=== PATIENT | male | born 1950 | race Caucasian/White ===

== ENCOUNTER 2025-01-11 06:43 | Outpatient (REF) | payer OTHER, SELFPAY ==
[2025-01-11 07:04] LABS: MANUAL DIFF FLAG NO
[2025-01-11 07:18] LABS: Basophils Absolute Auto 0.1 X10*3/uL (0.0-0.2); Basophils Percent Auto 0.6 % (0-2); Eosinophils Absolute Auto 0.8 X10*3/uL (0.0-0.4); Eosinophils Percent Auto 9.2 % (0-4); Hematocrit 34.2 % (42.0-52.0); Hemoglobin 11.3 g/dl (14.0-18.0); Imm Gran Abs Auto 0.04 X10*3/uL (0.00-0.03); Imm Gran Pct Auto 0.5 % (0.0-0.4); Lymphocytes Absolute Auto 1.8 X10*3/uL (1.2-4.9); Lymphocytes Percent Auto 20.7 % (20-40); Mean Corpuscular Volume 87.7 fL (80.0-98.0); Mean Platelet Volume 10.6 fL (9.4-12.4); Monocytes Absolute Auto 0.8 X10*3/uL (0.1-1.2); Monocytes Percent Auto 9.5 % (2-11); Neutrophils Absolute Auto 5.3 x10*3/uL (2.0-8.3); Neutrophils Percent Auto 59.5 % (45-73); Platelet Count 304 X10*3/uL (160-400); White Blood Count 8.9 X10*3/uL (4.8-10.8)
[2025-01-11 07:46] LABS: Alanine Aminotransferase 14 U/L (0-40); Albumin Level 3.4 g/dL (3.5-5.0); Alkaline Phosphatase 78 U/L (39-117); Anion Gap 10 (12-20); Aspartate Amino Transferase 20 U/L (5-37); Bilirubin Total 0.3 mg/dL (0.0-1.0); Blood Urea Nitrogen 18 mg/dL (9-16); Calcium 9.1 mg/dL (8.4-10.2); Carbon Dioxide 30 mmol/L (22-29); Chloride 105 mmol/L (96-108); Cholesterol 175 mg/dL (<200); Estimated Glomerular Filt Rate > 60; Glucose Fasting 86 mg/dL (60-99); HDL Cholesterol 41 mg/dL (>40); Iron 43 mcg/dL (45-160); LDL Cholesterol Calculated 119 mg/dL (<100); Percent Iron Saturation 22 % (15-50); Potassium 4.1 mmol/L (3.3-5.1); Sodium 141 mmol/L (135-145); Total Iron Binding Capacity 194 mcg/dL (228-428); Total Protein 6.5 g/dL (6.5-8.0); Triglycerides 78 mg/dL (<150); Unsaturated Iron Binding 151 ug/dL
[2025-01-11 08:02] LABS: Ferritin 226 ng/mL (20-250); Thyroid Stimulating Hormone 4.53 uIU/mL (0.32-4.0)
[2025-01-11 08:21] LABS: Folate 12.6 ng/mL (> or = 4.0)
[2025-01-11 08:24] LABS: Prostate Specific Antigen 1.53 ng/mL (<0.05-4.0); Vitamin B12 307 pg/mL (200-900)
[2025-01-14 09:12] LABS: TS Negative Control Passed; TS Panel A 4; TS Panel B 2; TS Positive Control Passed; TSpotTB Negative (Negative)
[2025-01-19 13:44] LABS: VITAMIN D (1,25 OH) D3 29 pg/mL; Vit D (1,25-Dihydroxy) Total 29 pg/mL (18-72); Vitamin D (1,25 OH) D2 <8 pg/mL
== END 2025-01-11 06:44 | disposition home or self-care (01) ==
LOC: HO.HSH2W 06:43
PROVIDERS: Visit Provider Internal Medicine
DX: Z13.89 Encounter for screening for other disorder (principal)
CPT/HCPCS: 36415; 80053; 80061; 82607; 82652; 82728; 82746; 83540; 84153; 84443; 85025; 86481

== ENCOUNTER 2025-02-07 11:53 | Outpatient (AMB) | payer OTHER, SELFPAY ==
--- OUTSIDE RECORDS SUMMARY | 2019-05-11 09:15 | XMS_ITS | Continuity of Care Document ---
Author Organization [facility] Address [address] [place] [address] [place] [phone] Phone Care Team Providers Care Welding Manager Name Role Phone Kike Cortés MD Unavailable [...] on Encounter [facility] , [address] [place], [place] [address], [place], [place], [id number], [place] tel:[phone] [place] s/p PCIOL OS (chief complaint) Cataract extraction status, right eye Oct-0 3 9 Opalkaren Stokes. [address] [place] [address], [id number], . tel:[phone] [facility] [address], [id number], [place] tel:[phone] [place] No Information Oct-0 2 9 Milana Stokes. [address] [place] [address], [id number], [place]. tel:[phone] Referring Provider: Kike Gusman, [address] [place] [address], [id number] . tel:[phone] [facility] [address], [id number], [place] tel:[phone] [place] Post OP (chief complaint) Cataract extraction status, left eye Sep-1 9 Milana Stokes. [address] [place] [address], [id number], [place]. tel:[phone] [facility] [address], [id number], [place] tel:[phone] [place] No Information Sep-1 9 Milana Stokes. [address] [place] [address], [id number], [place]. tel:[phone] Referring Provider: Kike Gusman, [address] [place] [address], [id number] . tel:[phone] [facility] [address], [id number], [place] tel:[phone] [place] [address] No Information Sep-0 9 Milana Stokes. [address] [place] [address], [id number], [place]. tel:[phone] [facility] [place], [address], [id number], tel:[phone] [place] Cataract OU (chief complaint) Combined form of senile cataract of both eyesPresbyopia 9 Milana Stokes. [address] [place] [address], [address], [id number], [place]. tel:[phone] [facility] , [address] [place] [address], [place], [place], [id number], tel:[phone] [place] 128 No Information 9 Mialna Stokes. [address] [facility], [place] [address], [place], [place], [id number], [place]. tel:[phone] Family History Family Member Type Diagnosis Age At Onset Problem (finding) Family history of diabetes mellitus type 2 Payers Payer name Insurance type Covered alliance party ID Authoriza tion(s) No Information Social History [...]
--- NOTE | 2025-02-07 11:53 | MHC.OFFVIS ---
Intake Visit Reasons: VT follow up- New PT Intake Note: Patient is present for VT F/U Urology Medication:NONE Antibiotic Allergy:NONE Blood Thinner:NONE Post Hole Digger Required: No Allergies No Known Allergies Allergy (Verified 02/07/25 11:54) Coding
--- OUTSIDE RECORDS SUMMARY | 2025-02-07 12:37 | XMS_ITS | Clinical Summary ---
Author Organization [employer] Address [address] [facility] [address] [place] [address] Care Team Providers Care Motocross Racer Name Role Phone Unavailable Primary Care Provider Unavailabl e Social History Tobacco Use Types Packs/Day Years Used Date Smoking Tobacco: Never Assessed Sex and Gender Information Value Date Recorded Sex Assigned at Male 01/23/2025 9:18 AM EDT Legal Sex Male 9:16 AM EDT Gender Identity Male 01/23/2025 9:18 AM EDT Sexual Orientation Straight 01/23/2025 9: 18 AM EDT Plan of Treatment Upcoming Encounters Date Type Department Care Team (Late st Contact Info) Description 03/21/2025 1:45 PM EDT Office Visit [facility] [address] [place] [address] Tyler Hahn, DMD [address] [facility] [place] [address] Health Maintenance Due Date Last Done Comments CT Colonography 1950 Colonoscopy 1950 Colorectal Cancer Screening 1950 Depression Screening 1950 FIT DNA/Cologuard 1950 FIT 1950 FOBT 1950 Lipid Panel 1950 SDOH Screening 1950 Sigmoidoscopy 1950 Alcohol/Substance Use Screening 1962 Tobacco Screening 1962 Hepatitis C Screening 1968 DTaP/Tdap/Td Vaccines (1 - Tdap) 1969 Pneumococcal Vaccine: 50+ Ye ars (1 of 1 - PCV) 2000 Zoster Vaccines (1 of 2) 2000 COVID-19 Vaccine ( - 2023-2 5 season) 2024 Influenza Vaccine (Season Ended) 2025 RSV Patients and Pa tients Aged 60 years or older (1 - 1-dose 75+ series) 2025 HIB Vaccines Aged Out No longer eligi ble based on patient's age to complete this topic HPV Vaccines Aged Out No longer eligi ble based on patient's age to complete this topic Hepatitis A Vaccines Aged Out No long er eligible based on patient's age to complete this topic Hepatitis B Vaccines Aged Out No long er eligible based on patient's age to complete this topic IPV Vaccines Aged Out No longer eligi ble based on patient's age to complete this topic Meningococcal B Vaccine Aged Out No l onger eligible based on patient's age to complete this topic Meningococcal Vaccine Aged Out No suresh debora eligible based on patient's age to complete this topic RSV under 20 months Aged Out No longe r eligible based on patient's age to complete this topic Rotavirus Vaccines Aged Out No longer eligible based on patient's age to complete this topic
--- NOTE | 2025-02-07 15:50 | HO.VETSHOME ---
Intake Intake Visit Reasons: VT follow up- New PT Allergies No Known Allergies Allergy (Verified 02/07/25 11:54) HPI HPI Comments History of Present Illness Details Kash is a pleasant male. [facility]ident [facility]. He is seen for the following urologic conditions - neurogenic bladder - low risk prostate cancer Hospitalized in [place] with urosepsis secondary to E coli and hematuria. Cystoscopy performed with clot retention removal 07/02 Has failed voiding trial multiple occasions Optimized on finasteride and tamsulosin Recommendation for voiding trial If voiding trial fails recommend suprapubic tube placement Review of Systems Const Denies chills and Denies fever(s) Card Reports no additional complaints and Denies syncope Resp Denies cough GI Denies abdominal pain and Denies heartburn Reports as per HPI and Denies change in libido Neuro Denies syncope Psych Denies change in libido Endo Denies change in libido Physical Exam Const General: cooperative, healthy appearing, comfortable and no acute distress Orientation/consciousness: patient oriented x3 HEENT Face and sinus: Yes normal facial exam Mouth: moist mucous membranes Neck Neck: Yes normal visual inspection, Yes full ROM and Yes trachea midline Chest Chest palpation & inspection: normal inspection of the chest Resp Effort & Inspection: normal respiratory effort, able to speak in complete sentences and no respiratory distress GI Inspection: Yes normal to inspection Back/Spine/Pelvis Cervical Spine: normal cervical lordosis Thoracic/Lumbar Spine: thoracic and lumbar spine normal to inspection Skin General skin exam: no rashes or lesions noted Neuro General: patient oriented x3, gait normal, tone normal and moves all extremities Extrem General: Yes normal to inspection and Yes capillary refill normal Assessment & Plan Assessment & Plan (1) Neurogenic urinary bladder disorder: Code(s): N31.9 - Neuromuscular dysfunction of bladder, unspecified (2) Hormone sensitive prostate cancer: Code(s): C61 - Malignant neoplasm of prostate; Z19.1 - Hormone sensitive malignancy status Plan Voiding trial Patient Instructions: This note is constructed using voice recognition software. While every effort has been made to ensure accuracy mechanical meter tester errors may have been included. Imaging studies, laboratory and physical exam results were discussed and reviewed in detail. No major barriers to patient understanding were identified. An opportunity to ask questions regarding the treatment plan was provided. All questions were answered. The patient expressed understanding and agreement with the above treatment plan. The patient is aware they should contact our office by phone for worsening of their current condition or the appearance of new urologic symptoms. Compliance is encouraged with any medications and followup testing that is ordered. It is a privilege to participate in the urologic care of your patient. If you have any questions or concerns regarding treatment for the above conditions, or other urologic issues, please do not hesitate to contact me. The office telephone contact is [phone]. Sincerely, Dr Ranjeet Peralta MD, [facility] - Urology Compassionate Specialist Care for the Genitourinary System Coding Level of Care Code 28287-Ugxu Fac initial, mod Diagnoses Neurogenic urinary bladder disorder N31.9 Hormone sensitive prostate cancer C61; Z19.1
== END 2025-02-07 16:22 | disposition home or self-care (01) ==
LOC: HO.HUSV 11:53
PROVIDERS: Visit Provider Urology
DX: N31.9 Neuromuscular dysfunction of bladder, unspecified (principal); C61 Malignant neoplasm of prostate; Z19.1 Hormone sensitive malignancy status
CPT/HCPCS: 99305

== ENCOUNTER 2025-02-09 15:12 | Emergency (ER) | payer MEDICARE, SELFPAY ==
--- NOTE | ~2025-02-09 | CT_ITS ---
CLINICAL HISTORY: fall CT chest without contrast Comparison: None provided Findings: The heart is normal size. The visualized thyroid and mediastinum are unremarkable. Gynecomastia. Calcified granuloma in the right upper lobe. Scattered tiny bilateral pulmonary nodules measuring no more than 5 mm. Per Fleischner criteria: Low-risk patients: No routine follow-up required. High-risk patients: Optional CT at 12 months. Left apical pleural thickening. No significant pleural effusion or pneumothorax. Please see same day CT abdomen pelvis report. Subtle nondisplaced fracture along the right glenoid best appreciated on series 25, image 28. Exaggeration of the thoracic kyphosis. Osteopenia with diffuse multilevel spondylosis. Multilevel Schmorl's nodes with likely small scattered bone islands. Chronic appearing multilevel compression deformities without evident acute fracture lines. Intramuscular lipoma along the right posterior inferior shoulder. IMPRESSION: No acute intrathoracic pathology. Right glenoid fracture. This document has been electronically signed by: Lorenzo Sorto MD on 02/09/2025 18:15:50
--- NOTE | ~2025-02-09 | CT_ITS ---
CLINICAL HISTORY: Fall CT cervical spine without contrast Comparison: None provided Findings: Motion and streak artifact limit evaluation. Exaggeration of the cervical lordosis. Osteopenia of the Multilevel spondylosis with osteophytosis, uncovertebral hypertrophy, facet arthropathy and degenerative disc disease. Diffuse spinal canal narrowing, for example [id number] at C5-C6 with severe bilateral foraminal stenoses. No acute fractures or dislocations. No cervical fluid collections or masses. Lung apices are clear. IMPRESSION: No acute findings. Additional findings as described. This document has been electronically signed by: Lorenzo Sorto MD on 02/09/2025 18:22:38
--- NOTE | ~2025-02-09 | CT_ITS ---
CLINICAL HISTORY: Fall CT head without contrast Comparison: None provided Findings: Scattered subcortical and periventricular hypoattenuation, likely in keeping with chronic small vessel ischemic disease. Parenchymal volume loss with compensatory prominence of the ventricles and CSF spaces. No acute territorial infarction, intracranial hemorrhage, midline shift or hydrocephalus. Bilateral encephalomalacia/gliosis, left more than right frontal lobes. Opacified paranasal sinuses, right more than left with scattered air-fluid levels may reflect acute sinusitis. The orbits are within normal limits. Minimal soft tissue edema along the left forehead. There is no acute fracture. Bilateral lens extraction. IMPRESSION: 1. No acute intracranial hemorrhage or territorial infarction. 2. Additional findings as described. This document has been electronically signed by: Lorenzo Sorto MD on 02/09/2025 18:19:27
--- NOTE | ~2025-02-09 | CT_ITS ---
CLINICAL HISTORY: fall CT abdomen and pelvis without contrast Comparison: None provided Findings: Small hiatal hernia. Esophageal decompression with mild mural thickening, nonspecific. Please see same day CT chest report. Gynecomastia. Bilateral perinephric stranding, nonspecific. No urolithiasis or hydronephrosis. No bowel obstruction, pneumoperitoneum, or pneumatosis. Mildly prominent inguinal nodes, may be reactive. Circumferential bladder wall thickening with stranding concerning for cystitis. Large rectal stool burden with mural thickening and presacral stranding concerning for proctitis. Prostatomegaly noted. Scattered colonic diverticulosis without diverticulitis or colitis. Normal appendix. Osteopenia with diffuse multilevel spondylosis. Multilevel Schmorl's nodes. No acute fracture. [id number] right and mild left bilateral hip osteoarthritis. IMPRESSION: 1. Possible cystitis, should be correlated clinically. 2. Features concerning for proctitis. This document has been electronically signed by: Lorenzo Sorto MD on 02/09/2025 18:21:06
[2025-02-09 15:19] VITALS: BP 148/70; PULSE 81; O2SAT 98
[2025-02-09 15:25] VITALS: BP 145/68; PULSE 77; RESP 17; TEMP 36.4; O2SAT 96; BMI 28.8
--- OUTSIDE RECORDS SUMMARY | 2025-02-09 16:00 | XMS_ITS | Clinical Summary ---
Author Organization [employer] Address [address] [facility] [address] [place] [address] Care Team Providers Care Car Varnisher Name Role Phone Unavailable Primary Care Provider [...] Description 03/21/2025 1:45 PM EDT Office Visit [facility] [address] [place] [address] Tyler Hahn, DMD [address] [facility] [place] [address] Health Maintenance Due Date Last Done Comments [...]
--- NOTE | 2025-02-09 16:26 | ECG_ITS ---
Test Reason : fall untwitnessed Blood Pressure : */* mmHG Vent. Rate : 83 BPM Atrial Rate : 83 BPM P-R Int : 158 ms QRS Dur : 94 ms QT Int : 380 ms P-R-T Axes : 79 -33 74 degrees QTcB Int : 446 ms Normal sinus rhythm Left axis deviation Abnormal ECG No previous ECGs available Referred By: Jose Coy Electronically Signed By: JUNG ALVAREZ MD
--- NOTE | 2025-02-09 16:41 | ED.GENADULT ---
HPI - General Adult General Chief complaint: Fall Stated complaint: unwitnessed fall, L sided pain Time Seen by Provider: 02/09/25 15:16 Source: EMS Mode of arrival: EMS Limitations: other (Dementia) History of Present Illness HPI narrative: 74 yold male with pmh of dementia, GERD, urge incontinenence presents to the ED for unwitnessed fall. Patient usually has to be liefted with foyer and move around the floor in a foyer. Patient was found on the ground away from his room. Related Data Home Medications ?Medication ?Instructions ?Recorded ?Confirmed No Known Home Meds 02/07/25 Allergies Allergy/AdvReac Type Severity Reaction Status Date / Time No Known Allergies Allergy Verified 02/09/25 15:28 Review of Systems Review of Systems: unwtinessd fall Yes all other systems are reviewed and are negative [facility] Social History Social History (System 02/08/25 @ 14:15 by Keyanna Talavera) Unable to assess alcohol history related to: Unable to respond Physical Exam ED Vital Signs: Vital Signs - 24 hr 02/09/25 15:25 02/09/25 19:19 Temperature 97.5 F 98.0 F Pulse Rate 77 80 Respiratory Rate 17 16 Blood Pressure 145/68 H 143/77 H Pulse Oximetry 96 94 Oxygen Delivery Method Room Air Room Air BMI result Body Mass Index 28.8 Const General: cooperative, healthy appearing, comfortable, no acute distress, well developed, alert, awake and Physically active [facility] Head: Yes normal to inspection, Yes No palpable skull fracture present, Yes normocephalic and Yes atraumatic Eyes General: appearance normal, both eyes and all related structures Neck Neck: Yes normal visual inspection, Yes full ROM, Yes no lymphadenopathy, Yes no meningeal signs, Yes trachea midline, Yes supple, No anterior neck swelling and No tender Chest Chest palpation & inspection: normal inspection of the chest and normal palpation of entire chest wall Resp Effort & Inspection: normal respiratory effort and able to speak in complete sentences Auscultation: clear to auscultation bilaterally Cardio Jugular venous distension: no JVD Heart sounds: S1 normal heart sound present and S2 normal heart sound present GI Inspection: Yes normal to inspection Palpation (GI): Soft to palpation, not firm, nontender, no guarding and not rigid General: Yes no CVA tenderness Back/Spine/Pelvis Back: no CVA tenderness and No back tenderness Skin General skin exam: no rashes or lesions noted, elasticity normal and turgor normal Neuro Other: A0x1 which is baselind General: moves all extremities, Normal light touch and pain sensation, no meningeal signs, no focal motor deficits, CN's II-XI intact bilaterally and normal sensation to monofilament Extrem General: Yes normal to inspection, Yes full ROM and Yes capillary refill normal Psych Appearance: grossly normal, well kempt and not disheveled Course Course Course Narrative: 11:00 PM 02/09/2025 (Mk JAMIL): Patient was signed out to this provider at shift change, in summary the patient is a 74-year-old male presenting to the ED for evaluation of an unwitnessed fall. Patient was found to have a right glenoid fracture, placed in a splint, however was signed out pending repeat troponin and urinalysis. The patient's repeat troponin is negative, patient's urinalysis shows leukocyte esterase and WBCs, no nitrites or bacteria, patient reportedly is not experiencing any urinary symptoms. UA findings do not likely demonstrate true infection. Patient will be discharged. Medical Decision Making Medical Decision Making [facility] Narrative: 74-year-old male presents to ED for witnessed fall at residential. Patient will have medical workup. 7:13: Hives she EKG are reassuring. CT scan shows right glenoid fracture. Patient is placed in sling. Pending UA and troponin. Signed out to OMERO Polk Differential Diagnosis Differential Diagnoses: The differential diagnosis associated with the presentation includes (Brain bleed or fracture) Admission/Observation Consideration of admission/observation: Escalation of care including admission/observation considered Lab Data [facility] Lab Attestation statement: I reviewed the patient's lab results. 02/09/25 17:28 02/09/25 17:28 Labs: Lab Results 02/09/25 02/09/25 02/09/25 Range/Units 17:28 19:10 20:47 WBC 10.3 (4.8-10.8) X10*3/uL RBC 4.44 L (4.60-5.80) X10*6/uL Hgb 13.0 L (14.0-18.0) g/dl Hct 38.8 L (42.0-52.0) % MCV 87.4 (80.0-98.0) fL MCH 29.3 (27.0-33.0) pg MCHC 33.5 (31.0-36.0) g/dl RDW 13.3 (11.0-16.0) % Plt Count 317 (160-400) X10*3/uL MPV 9.6 (9.4-12.4) fL Immature Gran % (Auto) 0.2 (0.0-0.4) % Neut % (Auto) 66.8 (45-73) % Lymph % (Auto) 14.9 L (20-40) % Waldo % (Auto) 8.2 (2-11) % Eos % (Auto) 9.3 H (0-4) % Baso % (Auto) 0.6 (0-2) % Lymph # (Auto) 1.5 (1.2-4.9) X10*3/uL Waldo # (Auto) 0.9 (0.1-1.2) X10*3/uL Eos # (Auto) 1.0 H (0.0-0.4) X10*3/uL Baso # (Auto) 0.1 (0.0-0.2) X10*3/uL Abs Immat Gran (auto) 0.02 (0.00-0.03) X10*3/uL Absolute Neuts (auto) 6.9 (2.0-8.3) x10*3/uL Absolute Nucleated RBC 0.000 (0.0-0.012) X10*3/uL Nucleated RBC % (auto) 0.0 (0.0-0.2) /100WBC Sodium 142 (135-145) mmol/L Potassium 4.3 (3.3-5.1) mmol/L Chloride 106 (96-108) mmol/L Carbon Dioxide 27 (22-29) mmol/L Anion Gap 13 (12-20) BUN 18 H (9-16) mg/dL Creatinine 0.93 (0.5-1.4) mg/dL Estim Creat Clear Calc 79.1 Estimated GFR > 60 Random Glucose 114 (60-115) mg/dL Calcium 8.8 (8.4-10.2) mg/dL Magnesium 2.1 (1.6-2.6) mg/dL Total Bilirubin 0.2 (0.0-1.0) mg/dL AST 21 (5-37) U/L ALT 17 (0-40) U/L Alkaline Phosphatase 87 (39-117) U/L Troponin I High Sens < 2.7 < 2.7 (<3.5-35.0) ng/L Total Protein 7.2 (6.5-8.0) g/dL Albumin 3.7 (3.5-5.0) g/dL Urine Color Yellow Urine Appearance Clear Urine pH 8.0 (5.0-9.0) Ur Specific [place] 1.010 (1.005-1.025) Urine Protein Negative (Neg-Trace) mg/dL Urine Glucose (UA) Negative (Negative) mg/dL Urine Ketones Negative (Negative) mg/dL Urine Blood Negative (Negative) Urine Nitrite Negative (Negative) Ur Leukocyte Esterase Large (3+) H (Negative) Urine RBC 0-2 (0-2) /HPF Urine WBC >50 H (0-5) /HPF Ur Squamous Epith Cells 0-2 (0-2) /HPF Urine Bacteria None Seen (None Seen) Hyaline Casts 0-2 (0-2) /LPF Independent Interpretation I performed an independent interpretation of an: EKG (Negative STEMI) and CT Scan Radiology Impression Discussion of test interpretation with radiology: I have reviewed the radiologist's reading. Independent Historian Clinical information obtained from an independent historian. History obtained from or confirmed by: Other (Patient) Prescription Management I considered prescription management with: Pain Medication Discharge Plan Discharge Clinical Impression: Glenoid fracture of shoulder Patient Disposition: Home, Self-Care Instructions: Arm Fracture in Adults (ED) Additional Instructions: Recommend follow-up with orthopedic surgery and PCP. Return to the ED immediately for swelling, bluish black discoloration, bloody urine, abdominal pain, flank pain, fever, chills, headache, dizziness, chest pain, shortness of breath, or any other concerning symptoms. Prescriptions: No Action No Known Home Meds Referrals: [facility] Orthopedic Surgeons [Provider Group, Orthopedics] - 2 days Referral Note: Glenoid fracture Clinical Impression: Glenoid fracture of shoulder Interventions: ED Discharge Assessment Last Done: 02/10/25 00:21 Discharge Date/Time: 02/10/25 00:22 Print Language: Yakut
[2025-02-09 17:34] LABS: MANUAL DIFF FLAG NO
[2025-02-09 17:35] LABS: Hematocrit 38.8 % (42.0-52.0); Hemoglobin 13.0 g/dl (14.0-18.0); Imm Gran Abs Auto 0.02 X10*3/uL (0.00-0.03); Imm Gran Pct Auto 0.2 % (0.0-0.4); Lymphocytes Absolute Auto 1.5 X10*3/uL (1.2-4.9); Mean Corpuscular HGB Conc 33.5 g/dl (31.0-36.0); Mean Corpuscular Hemoglobin 29.3 pg (27.0-33.0); Mean Corpuscular Volume 87.4 fL (80.0-98.0); NRBC Abs Auto 0.000 X10*3/uL (0.0-0.012); NRBC Pct Auto 0.0 /100WBC (0.0-0.2); Platelet Count 317 X10*3/uL (160-400); Red Blood Count 4.44 X10*6/uL (4.60-5.80); White Blood Count 10.3 X10*3/uL (4.8-10.8)
[2025-02-09 17:49] LABS: Alanine Aminotransferase 17 U/L (0-40); Albumin Level 3.7 g/dL (3.5-5.0); Alkaline Phosphatase 87 U/L (39-117); Anion Gap 13 (12-20); Aspartate Amino Transferase 21 U/L (5-37); Blood Urea Nitrogen 18 mg/dL (9-16); Calcium 8.8 mg/dL (8.4-10.2); Carbon Dioxide 27 mmol/L (22-29); Chloride 106 mmol/L (96-108); Creatinine Clr Calc Pharmacy 79.1; Estimated Glomerular Filt Rate > 60; Magnesium 2.1 mg/dL (1.6-2.6); Potassium 4.3 mmol/L (3.3-5.1); Sodium 142 mmol/L (135-145); Total Protein 7.2 g/dL (6.5-8.0)
[2025-02-09 18:00] LABS: Troponin-I High Sensitivity < 2.7 ng/L (<3.5-35.0)
[2025-02-09 19:19] VITALS: BP 143/77; PULSE 80; RESP 16; TEMP 36.7; O2SAT 94
[2025-02-09 19:26] LABS: Appearance Urine Clear; Glucose Urine UA Negative (Negative); PH 8.0 (5.0-9.0); Specific Gravity - Urine 1.010 (1.005-1.025); UMIC TRIGGER UACC YES
[2025-02-09 19:32] LABS: UACC Culture Trigger YES
[2025-02-09 21:19] LABS: Troponin-I High Sensitivity < 2.7 ng/L (<3.5-35.0)
[2025-02-09 23:30] VITALS: BP 164/75; PULSE 75; RESP 14; TEMP 37.2; O2SAT 96
[2025-02-10 00:21] VITALS: BP 164/75; PULSE 75; RESP 14; TEMP 37.2; O2SAT 96
--- NOTE | 2025-02-10 00:21 | PC.NURSE ---
Susanne at facility called for report
== END 2025-02-10 00:22 | disposition home or self-care (01) ==
PROVIDERS: Physician Assistant; Emergency Provider Emergency Medicine Emergency Medical Services
DX: S42.92XA Fracture of left shoulder girdle, part unspecified, initial encounter for closed fracture (principal); R51.9 Headache, unspecified; M54.50 Low back pain, unspecified; R94.31 Abnormal electrocardiogram [ECG] [EKG]; R07.89 Other chest pain; R10.2 Pelvic and perineal pain; M54.2 Cervicalgia; X58.XXXA Exposure to other specified factors, initial encounter; W19.XXXA Unspecified fall, initial encounter; Y93.9 Activity, unspecified; Y92.9 Unspecified place or not applicable; Y99.8 Other external cause status; Z79.899 Other long term (current) drug therapy
CPT/HCPCS: 36415; 51701; 70450; 71250; 72125; 74176; 80053; 81001; 83735; 84484; 85025; 87086; 87088; 87186; 93005; 99285

== ENCOUNTER → 2025-02-09 15:37 | Outpatient (BNV) | payer MEDICARE, SELFPAY | PROVIDERS: Emergency Provider Emergency Medicine Emergency Medical Services; Visit Provider Radiology Diagnostic Radiology | DX: M47.896 Other spondylosis, lumbar region (principal); S42.141A Displaced fracture of glenoid cavity of scapula, right shoulder, initial encounter for closed fracture; M48.02 Spinal stenosis, cervical region; R22.0 Localized swelling, mass and lump, head | CPT/HCPCS: 70450; 71250; 72125; 74176 ==

== ENCOUNTER → 2025-02-09 16:26 | Outpatient (BNV) | payer MEDICARE, SELFPAY | PROVIDERS: Emergency Provider Emergency Medicine Emergency Medical Services; Visit Provider Internal Medicine Cardiovascular Disease | DX: R94.31 Abnormal electrocardiogram [ECG] [EKG] (principal); W19.XXXA Unspecified fall, initial encounter | CPT/HCPCS: 93010 ==

== ENCOUNTER 2025-02-21 12:35 | Outpatient (AMB) | payer MEDICARE, SELFPAY ==
--- OUTSIDE RECORDS SUMMARY | 2019-05-11 09:15 | XMS_ITS | Continuity of Care Document ---
Author Organization [facility] Address [address] [place] [address] [place] [id number] Phone Care Team Providers Care Speech/Language Therapist Name Role Phone Kike Cortés MD Unavailable Unavailable Allergies, Adverse Reactions, Alerts Substance Reaction Status Criticality No Known Allergies Active No Inform ation Medications Medication Instructions Dosage Effective Dates (start - stop) Status Comments Ilevro 0.3 % eye drops,suspension Instill 1 drop to the operated eye once a day three days prior to surgery - Active Vigamox 0.5 % eye drops instill 1 drop TO THE OPERATIVE EYE THREE TIMES A DAY THREE DAYS PRIOR TO SURGERY - Active prednisolone acetate 1 % eye drops,suspension instill 1 drop by ophthalmic route 2 times every day into affected eye(s) 1.00 drop - Active one a day mens (unknown strength) Not Available - Active IMITREX (unknown strength) Not Available - Active VIAGRA (unknown strength) Not Available - Active Procedures Procedure Date Post-op Follow-up Visit Remove Cataract Complex Post-op Follow-up Visit Custom Cataract Complex LT Extended Refractive Care Coelho Toric Lens ZCT Refraction Ophthalmic IOL Master Intermediate Revisit New Patient Comprehensive Advance Directives Directive Yes / No Effective Date File Name No Information Encounters Encounter Description Practice Location Reason(s) For Visit Diagnoses Date Provider Providers Copied on Encounter [facility] , [address] [place], [place] [address]Suite [facility], [place], [place], [id number], [place] tel:[phone] [place] s/p PCIOL OS (chief complaint) Cataract extraction status, right eye Oct-0 3 9 Opalkaren Stokes. [address] [place] [address], [id number], . tel:[phone] [facility] [address], [id number], [place] tel:[phone] [place] No Information Oct-0 2 9 Milana Stokes. [address] [place] [address], [id number], [place]. tel:[phone] Referring Provider: Kike Gusman, [address] [place] [address], [id number] . tel:[phone] [facility] [address], [id number], [place] tel:[phone] [place] Post OP (chief complaint) Cataract extraction status, left eye Sep-1 9 Milana Sotkes. [address] [place] [address], [id number], [place]. tel:[phone] [facility] [address], [id number], [place] tel:[phone] [place] No Information Sep-1 9 Milana Stokes. [address] [place] [address], [id number], [place]. tel:[phone] Referring Provider: Kike Gusman, [address] [place] [address], [id number] . tel:[phone] [facility] [address], [id number], [place] tel:[phone] [place] [address] No Information Sep-0 9 Milana Stokes. [address] [place] [address], [id number], [place]. tel:[phone] [facility] [place], [address], [id number], tel:[phone] [place] Cataract OU (chief complaint) Combined form of senile cataract of both eyesPresbyopia 9 Milana Stokes. [address] [place] [address], [address], [id number], [place]. tel:[phone] [facility] , [address] [place] [address], [place], [place], [id number], tel:[phone] [place] 128 No Information 9 Milana Stokes. [address] [facility], [place] [address], [place], [place], [id number], [place]. tel:[phone] Family History Family Member Type Diagnosis Age At Onset Problem (finding) Family history of diabetes mellitus type 2 Payers Payer name Insurance type Covered democrat ID Authoriza tion(s) No Information Social History Type Description Quantity Date Captured Comments Alcohol Use Details Unknown Caffeine Use Details Unknown Tobacco Use Status Current non-smoker Smoking Status Never smoker Non-Smoking Tobacco Use Details : No Details Available : No Details Available Sex Male Chief Complaint And Reason For Visit From encounter dated '05/11/2019 13:15'. s/p PCIOL OS (chief complaint). Description: The 69 year old male presents for s/p PCIOL OD (05/10/19). Pt c/o sudden scratchiness OD last night but improved today Reason For Referral Reason For Referral No Information History Of Present Illness Encounter Date Complaint History Of Prese nt Illness s/p PCIOL OS The 69 year old male presents for s/p PCIOL OD (05/10/19). Pt c/o sudden scratchiness OD last night but improved today Post OP The 69 year old male presents for Post OP in the left eye. S/P PC IOL OS 04/26/19 Cataract OU The 69 Year old male presents for evaluation of Cataract OU. pt c/o glare when driving at night and difficulty seeing the signs on the road over the past few years. . pt denies any pain or discomfort Functional Status Date Functional Assessmen t No Information Instructions Date Instruction Additional Infor cali RT PRN with Dr. Cortés Related to Cataract extraction status, right eye Impression/Plan Related to Catar act extraction status, right eye Return in 2 Related to Catar act extraction status, left eye Impression/Plan Related to Catar act extraction status, left eye - RT as scheduled on 04/26/[address] Cortés for Cataract OS Related to Combined form of senile cataract of both eyes - Discussed diagnosi s and cataract surgery with patient in detail. Discussed risks, benefits, alternatives with patient. Patient understands that changing glasses will not significantly improve vision. The patient complains of difficulty performing activities of daily living. It is medically necessary to perform cataract surgery in order to improve the patient's ability to perform activities of daily living, improve quality of life, reduce/eliminate glare when driving at night, and improve the patient's best corrected visual acuity. Options for cataract surgery were discussed: basic surgery ( no laser, monofocal IOL), femtosecond laser assisted cataract surgery with monofocal IOL (corrects for astigmatism), and femtosecond laser assisted cataract surgery with an advanced IOL (e.g., multifocal and EDOF IOLs). The patient desires cataract surgery.RT as scheduled on 04/26/[address] Cortés for Cataract OS Related to Combined form of senile cataract of both eyes Assessments Type Assessment Date assessment Cataract extraction status, righ t eye impression S/p PC IOL OD 05/10/19- IOL in go od position Patient Care Teams Name Effective Dates (start - stop) Status Members No Information
--- NOTE | 2025-02-21 12:52 | MHC.OFFVIS ---
Intake Visit Reasons: FC-Right Glenoid Fracture Intake Note: Angel is a 74 year old male who presents today for an ER follow up of right glenoid fracture, DOI 02/09/25. Patient was seen at [facility] ER after he was found on the floor from an unwitnessed fall. Allergies No Known Allergies Allergy (Verified 02/09/25 15:28) HPI HPI FC-Right Glenoid Fracture: Details: This is a 74 old gentleman who lives in assisted living who presented to the emergency department after a fall and radiographs revealed a nondisplaced small fracture of the glenoid. Comes in today for follow up. He is unable to give me a history as he is a limited is communication ability and he is no one with him that knows his history. Nevertheless he does not appear to be in any distress and I ranged right arm and he has no pain. [facility] Social History (System 02/08/25 @ 14:15 by Keyanna Talavera) Unable to assess alcohol history related to: Unable to respond Physical Exam Extrem Other: On exam he has full active abduction and forward flexion of his right shoulder. External rotation to 35 degrees. I can not elicit discomfort and his shoulders seem to be symmetric and he can move both of them comfortably. Results Reviewed Results Reviewed: I personally reviewed relevant radiographs. There is a subtle nondisplaced fracture of his right glenoid Assessment & Plan Assessment & Plan (1) Fracture of glenoid cavity of right scapula: Code(s): S42.141A - Displaced fracture of glenoid cavity of scapula, right shoulder, initial encounter for closed fracture Category: Medical Plan: This is a 74-year-old gentleman who had an unwitnessed fall. He is nonambulatory and does not know lifting with his shoulders. He can eat comfortably according to his caregiver and I do not recommend intervention. He can return to activity as tolerated without restriction. Coding Level of Care Code New Pt Level 3 (69171) Diagnoses Fracture of glenoid cavity of right scapula S42.141A
--- OUTSIDE RECORDS SUMMARY | 2025-02-21 13:29 | XMS_ITS | Clinical Summary ---
Author Organization [employer] Address [address] [place] [address] Care Team Providers Care Industrial Truck Driver Name Role Phone Unavailable Primary Care Provider [...] Description 03/21/2025 1:45 PM EDT Office Visit [facility] [address] [place] [address] Tyler Hahn, DMD [address] [place] [address] Health Maintenance Due Date Last Done Comments [...] - 2023-2 5 season) 2024 Influenza Vaccine (#1) 2025 RSV Patients and Pa tients Aged [...]
== END 2025-02-21 14:07 | disposition home or self-care (01) ==
LOC: HO.HOS 12:35
PROVIDERS: Visit Provider Orthopaedic Surgery
DX: S42.141A Displaced fracture of glenoid cavity of scapula, right shoulder, initial encounter for closed fracture (principal)
CPT/HCPCS: 99203

== ENCOUNTER → 2025-02-21 12:35 | Outpatient (BNVA) | payer MEDICARE, SELFPAY | PROVIDERS: Visit Provider Orthopaedic Surgery | DX: S42.141A Displaced fracture of glenoid cavity of scapula, right shoulder, initial encounter for closed fracture (principal) | CPT/HCPCS: 99202 ==